=== PATIENT | female | born 1960 | race Caucasian/White ===

== ENCOUNTER → 2024-03-17 14:30 | Outpatient (BNVA) | payer MEDICARE, OTHER, SELFPAY | PROVIDERS: PCP Nurse Practitioner Family; Visit Provider Nurse Practitioner Family | DX: E03.9 Hypothyroidism, unspecified (principal); E78.5 Hyperlipidemia, unspecified; E55.9 Vitamin D deficiency, unspecified | CPT/HCPCS: 80053; 80061; 84443; 85025 ==

== ENCOUNTER 2024-04-07 07:12 | Outpatient (CLI) | payer MEDICARE, OTHER, SELFPAY ==
--- NOTE | 2024-04-07 14:00 | US_ITS ---
WS: [id number] ULTRASOUND SOFT TISSUES LEFT lower extremity. HISTORY: LUMP LEFT CONNOLLY COMPARISON: None available. TECHNIQUE: 2-D and color Doppler imaging is submitted. Please note the study was submitted for interpretation on 04/12/2024. There is a heterogeneous soft tissue mass along the anterior LEFT tibia in the area of concern. This is a well-circumscribed mass measuring 1.2 x 0.6 x 1.3 cm. Only a single images submitted with color Doppler. Limited evaluation of this mass. US/US soft tissue/extremity 20010 IMPRESSION: Limited ultrasound evaluation of the mass along the anterior LEFT tibia. This i s a hypoechoic mass which is very nonspecific. This may be a small epidermoid o r complex sebaceous cyst. There are no distinguishing features.
--- NOTE | 2024-04-07 15:00 | XR_ITS ---
WS: [id number] SCREENING DEXA SCAN BIO-NEMS CLINICAL INFORMATION: Screening COMPARISON: None. FINDINGS: The L1-L4 bone mineral density measures 1.115 g/cm2. This corresponds to a T score score of -0.5 and Z score of 0.3. Left femoral neck bone mineral density measures 0.943 g/cm2. This corresponds to a T score of -0.5 an d Z score of 0.2. Right femoral neck bone mineral density measures 0.973 g/cm2. This corresponds to a T score -0.3of an d Z score of 0.4. Mean femoral neck bone mineral density measures 0.958 g/cm2. This corresponds to a T score of -0.4 an d Z score of 0.3. XR/XR DEXA axial skeleton* [id number] IMPRESSION: Normal bone mineralization. Patient's FRAX calculated 10 year probability for major osteoporotic fracture i s 8.4% and osteoporotic hip fracture is 0.8%.
--- NOTE | 2024-04-07 15:30 | MM_ITS ---
WS: [id number] BILATERAL 3D TOMOSYNTHESIS DIGITAL SCREENING MAMMOGRAPHY WITH CAD CLINICAL INFORMATION: SCREENING HISTORY: Screening mammogram. No current complaints. COMPARISON: None available TECHNIQUE: Bilateral CC and MLO views. FINDINGS: The breasts are composed of heterogeneous fibroglandular density tissue, which can limit the detectio n of small underlying mass lesions. No suspicious mass, asymmetry, calcifications, or architectural d istortion. No evidence of malignancy. MM/[place] [id number] IMPRESSION: BI-RADS: 1-Negative FOLLOW UP: 1 Year Follow-up Recommend return to annual screening mammography.
== END 2024-04-07 13:54 | disposition home or self-care (01) ==
PROVIDERS: PCP Nurse Practitioner Family; Visit Provider Nurse Practitioner Family
DX: Z12.31 Encounter for screening mammogram for malignant neoplasm of breast (principal); R92.333 Mammographic heterogeneous density, bilateral breasts; Z13.820 Encounter for screening for osteoporosis; R22.42 Localized swelling, mass and lump, left lower limb
CPT/HCPCS: 76882; 77063; 77067; 77080

== ENCOUNTER → 2024-05-28 10:08 | Outpatient (BNVA) | payer MEDICARE, OTHER, SELFPAY | PROVIDERS: PCP Nurse Practitioner Family; Visit Provider Nurse Practitioner Family | DX: N18.32 Chronic kidney disease, stage 3b (principal) | CPT/HCPCS: 80053; 82043 ==

== ENCOUNTER → 2024-06-07 12:24 | Outpatient (BNVA) | payer MEDICARE, OTHER, SELFPAY | PROVIDERS: PCP Nurse Practitioner Family; Referring Provider Nurse Practitioner Family; Visit Provider Surgery | DX: R22.42 Localized swelling, mass and lump, left lower limb (principal) | CPT/HCPCS: 99204 ==

== ENCOUNTER → 2024-06-10 13:44 | Outpatient (BNVA) | payer MEDICARE, OTHER, SELFPAY | PROVIDERS: PCP Nurse Practitioner Family; Visit Provider Nurse Practitioner Family | DX: W57.XXXA Bitten or stung by nonvenomous insect and other nonvenomous arthropods, initial encounter (principal) | CPT/HCPCS: 86618; 86666; 86757 ==

== ENCOUNTER 2024-06-17 08:27 | Day surgery (SDC) | payer MEDICARE, OTHER, SELFPAY ==
[2024-06-17] VITALS (7 sets, daily range): BP systolic 112–164; BP diastolic 72–79; PULSE 55–63; RESP 16–18; TEMP 36.1–36.6; O2SAT 93–97; BMI 29.7
--- NOTE | 2024-06-17 09:12 | W.PM.OPSUD ---
Surgery/Procedure H&P Update DATE OF PROCEDURE: June 17, 2024 DATE H&P PERFORMED: 06/07/24 H&P UPDATE INFORMATION: I have reviewed H&P completed within last 30 days, I have examined patient prior to procedure and No changes to prior documentation PLANNED PROCEDURE: Operation Date: 06/17/24 10:05 Proposed Procedures p excision of subcutaneous [place] of leg [address], R22.22.42(Left) - Rui Davidson DO
--- NOTE | 2024-06-17 09:17 | ANES.PREANE2 ---
Pre-Anesthetic Assessment Height/Weight: Height 1.7 m Weight 86.183 kg Temp Pulse Resp BP Pulse Ox O2 Del Method 98 F 58 L 16 164/79 97 Room Air 06/17/24 09:02 06/17/24 09:02 06/17/24 09:02 06/17/24 09:02 06/17/24 09:02 06/17/24 09:02 Operation Date: 06/17/24 10:05 Proposed Procedures p excision of subcutaneous mass of leg [id number], R22.22.42(Left) - Rui Davidson DO Familial anesthetic complications: None Was Beta Seema taken within 24 hours: N/A Was Clonidine taken within 24 hours: N/A Last intake: Intake Last Liquid Date 06/17/24 Last Liquid Time 06:00 Last Solid Date 06/16/24 Last Solid Time 19:00 Social No alcohol and No tobacco Exam alert, oriented x 3, clear to auscultation bilaterally and regular rate & rhythm Airway Mallampati: Class II Dentition: full Metabolic Thyroid Disease hx potassium 5.4 Anesthetic Plan ASA status: 2 Anesthesia: General Other: Draw BMP Risk of > 500 ml blood loss (7ml/kg in children): No Medications/Allergies Home Medications Medication Instructions Recorded Confirmed Last Taken Type levothyroxine 50 mcg tablet 50 mcg PO DAILY 90 days #90 tabs 03/17/24 06/16/24 06/17/24 Rx ferrous sulfate-vitamin C 39 mg-75 1 tab PO DAILY 06/16/24 06/16/24 06/16/24 History mg tablet lutein 6 mg capsule 6 mg PO DAILY 06/16/24 06/16/24 06/16/24 History zinc 15 mg tablet 30 mg PO DAILY 06/16/24 06/16/24 06/16/24 History Allergies Allergy/AdvReac Type Severity Reaction Status Date / Time Sulfa (Sulfonamide Allergy Unknown Verified 06/17/24 08:56 Antibiotics) [facility] Anesthesia Family History Mother Diabetes Rheumatoid arthritis Social History Smoking and tobacco/nicotine status: never used tobacco/nicotine Data Anesthesia Cardiac Studies: No Data to Display
[2024-06-17] MEDS: sodium chloride 0.9% 1,000 ML 30 ML IV (09:24)
[2024-06-17 09:55] LABS: Blood Urea Nitrogen 16 mg/dL (8-23); Calcium 8.2 mg/dL (8.5-10.5); Carbon Dioxide 23 mmol/L (22-29); Chloride 106 mmol/L (98-107); Creatinine Clr Calc Pharmacy 79.0602; Glomerular Filtration Rate 123.8 mL/min (90-130); Glucose 76 mg/dL (65-115); Osmolality Calculated 290 mOsm/kg (285-295); Sodium 140 mmol/L (136-145)
[2024-06-17 09:58] LABS: Anion Gap 15.1 (5-19); Potassium 4.1 mmol/L (3.5-5.1)
[2024-06-17] MEDS: ceFAZolin 2,000 mg SDV 2000 MG IVP (10:58)
[2024-06-17] MEDS: lidocaine-epi 2% PF 1:200,000 20 mL SDV 4 ML XX (11:15)
--- NOTE | 2024-06-17 11:22 | PM.OP ---
Operative Report Date of procedure: June 17, 2024 Pre-op diagnosis: Subcutaneous mass left leg Post-op diagnosis: same Procedure done: Excision of subcutaneous mass left leg 1.5 cm Implants: None Specimens removed/disposition: Subcutaneous mass left leg Surgeon: Rui Davidson DO Anesthesia: MAC and Local Estimated blood loss (mL): 5 Complications: None apparent Brief History: This is a very pleasant 63-year-old female presented my office with an enlarging and painful subcutaneous mass of her left leg. She desired excision. The risks and benefits were explained and documented. Procedure: Patient was placed on the OR table in the supine position. The left leg was inspected prepped and draped in usual sterile fashion. A time was performed. All present were in agreement. 2% lidocaine with epinephrine was used to anesthetize the skin over the subcutaneous mass on the anterior left leg. A 1.5 cm transverse elliptical incision was made with 15 blade scalpel. Cautery was used to dissect down around a cystic structure which was removed intact. Skin was closed with 4-0 Vicryl in a simple interrupted fashion. Sterile bandages were applied. Patient tolerated procedure well.
--- NOTE | 2024-06-17 12:20 | ANE.PACU2 ---
Inpatient post-anesthesia follow up: Airway intact: Yes Vital signs: Temperature 97.5 F Pulse Rate 56 Respiratory Rate 18 Blood Pressure 142/77 Pulse Oximetry 97 Oxygen Delivery Me thod Room Air Oxygen Flow Rate Fraction of Inspir ed Oxygen Hydration adequate: Yes Nausea and vomiting: No Pain level: 1 Mental status: Baseline
== END 2024-06-17 12:20 | disposition home or self-care (01) ==
PROVIDERS: Anesthesiology; PCP Nurse Practitioner Family; Visit Provider Surgery
PROC: (CPT 11402; principal; 2024-06-17 09:10)
DX: R22.42 Localized swelling, mass and lump, left lower limb (principal)
CPT/HCPCS: 11402; 36415; 80048; 88304; 88342; J0690; J2250; J2704; J3010; J7030

== ENCOUNTER → 2024-06-28 13:04 | Outpatient (BNVA) | payer MEDICARE, OTHER, SELFPAY | PROVIDERS: PCP Nurse Practitioner Family; Visit Provider Surgery | DX: Z12.11 Encounter for screening for malignant neoplasm of colon (principal); R12 Heartburn; K21.9 Gastro-esophageal reflux disease without esophagitis; D23.9 Other benign neoplasm of skin, unspecified | CPT/HCPCS: 99214 ==

== ENCOUNTER → 2024-07-19 09:46 | Outpatient (BNVA) | payer MEDICARE, OTHER, SELFPAY | PROVIDERS: PCP Nurse Practitioner Family; Visit Provider Surgery | DX: Z98.890 Other specified postprocedural states (principal) | CPT/HCPCS: 99214 ==

== ENCOUNTER 2024-07-26 10:46 | Day surgery (SDC) | payer MEDICARE, OTHER, SELFPAY ==
[2024-07-26 10:59] VITALS: BP 148/92; PULSE 75; RESP 18; TEMP 36.5; O2SAT 97; BMI 29.7
[2024-07-26] MEDS: sodium chloride 0.9% 1,000 ML 30 ML IV (11:09)
--- NOTE | 2024-07-26 12:16 | ANES.PREANE2 ---
Pre-Anesthetic Assessment Height/Weight: Height 5 ft 7 in Weight 190 lb Temp Pulse Resp BP Pulse Ox O2 Del Method 97.7 F 75 18 148/92 97 Room Air 07/26/24 10:59 07/26/24 10:59 07/26/24 10:59 07/26/24 10:59 07/26/24 10:59 07/26/24 10:59 Preop Diagnosis: EGD/colonoscopy Operation Date: 07/26/24 12:00 Proposed Procedures p EGD 36324, 96250,G0121, Z12.11(Not Applicable) - Rui Davidson DO s Colonoscopy(Not Applicable) - Rui Davidson DO Was Beta Seema taken within 24 hours: N/A Was Clonidine taken within 24 hours: N/A Last intake: Intake Last Liquid Date 07/25/24 Last Liquid Time 20:00 Last Solid Date 07/24/24 Last Solid Time 19:00 Social No alcohol and No tobacco Exam alert, oriented x 3, clear to auscultation bilaterally and regular rate & rhythm Airway Submandibular: within normal limits Cervical ROM: within normal limits Mallampati: Class II Dentition: full Anesthetic Plan ASA status: 2 Anesthesia: MAC Other: No prior issues with anesthesia Completed bowel prep History of hypothyroidism, on Synthroid GERD on Protonix Denies hypertension, a.m. BP 148/92 METs greater than 4 Plan for MAC anesthetic Medications/Allergies Home Medications Medication Instructions Recorded Confirmed Last Taken Type levothyroxine 50 mcg tablet 50 mcg PO DAILY 90 days #90 tabs 03/17/24 07/22/24 07/26/24 08:00 Rx ferrous sulfate-vitamin C 39 mg-75 1 tab PO DAILY 06/16/24 07/22/24 07/25/24 History mg tablet lutein 6 mg capsule 6 mg PO DAILY 06/16/24 07/22/24 07/25/24 History zinc 15 mg tablet 30 mg PO DAILY 06/16/24 07/22/24 07/25/24 History hydrocodone 7.5 mg-acetaminophen 1 tab PO Q6H PRN pain #20 tabs 06/17/24 07/22/24 Unknown Rx 325 mg tablet pantoprazole 40 mg tablet,delayed 40 mg PO BID 6 weeks #84 tabs 06/28/24 07/22/24 07/25/24 Rx release (Protonix) Allergies Allergy/AdvReac Type Severity Reaction Status Date / Time Sulfa (Sulfonamide Allergy Unknown Verified 07/19/24 09:48 Antibiotics) Current Medications Generic Name Dose Route Start Last Admin Trade Name Freq PRN Reason Stop Dose Admin Sodium Chloride 1,000 mls @ 30 mls/hr 07/26/24 11:00 07/26/24 11:09 Sodium Chloride 0.9% IV 07/27/24 10:59 30 mls/hr .Q24H JUANJO Administration PFSH Anesthesia Surgical History Hx of hysterectomy 2007 Hx of colonoscopy with polypectomy age 48 Hx of excision of mass 06/17/24 Dr Davidson Subcutaneous mass left leg Family History Mother Diabetes Rheumatoid arthritis Social History Smoking and tobacco/nicotine status: never used tobacco/nicotine Data Anesthesia Cardiac Studies: No Data to Display
--- NOTE | 2024-07-26 12:43 | W.PM.OPSUD ---
Surgery/Procedure H&P Update DATE OF PROCEDURE: July 26, 2024 DATE H&P PERFORMED: 06/28/24 H&P UPDATE INFORMATION: I have reviewed H&P completed within last 30 days, I have examined patient prior to procedure and No changes to prior documentation PREOP DIAGNOSIS: EGD/colonoscopy PLANNED PROCEDURE: Operation Date: 07/26/24 12:00 Proposed Procedures p EGD 11949, 89161,G0121, Z12.11(Not Applicable) - DO abby Tilley Colonoscopy(Not Applicable) - Rui Davidson DO
[2024-07-26 13:06] VITALS: BP 129/75; PULSE 71; RESP 20; TEMP 36.1; O2SAT 96
[2024-07-26 13:14] VITALS: BP 129/95; PULSE 70; RESP 20; O2SAT 94
--- NOTE | 2024-07-26 13:44 | ANE.PACU2 ---
Inpatient post-anesthesia follow up: Airway intact: Yes Vital signs: Temperature 97.0 F Pulse Rate 70 Respiratory Rate 20 Blood Pressure 129/95 Pulse Oximetry 94 Oxygen Delivery Me thod Room Air Oxygen Flow Rate Fraction of Inspir ed Oxygen Hydration adequate: Yes Nausea and vomiting: No Pain level: 1 Mental status: Baseline
== END 2024-07-26 13:44 | disposition home or self-care (01) ==
PROVIDERS: PCP Nurse Practitioner Family; Visit Provider Surgery
PROC: 0DJ08ZZ Inspection of Upper Intestinal Tract, Via Natural or Artificial Opening Endoscopic (ICD-10-PCS; CPT 43235; principal; 2024-07-26 12:00)
PROC: 0DJD8ZZ Inspection of Lower Intestinal Tract, Via Natural or Artificial Opening Endoscopic (ICD-10-PCS; CPT 45378; 2024-07-26 12:00)
DX: Z12.11 Encounter for screening for malignant neoplasm of colon (principal); R12 Heartburn; K63.89 Other specified diseases of intestine; K21.9 Gastro-esophageal reflux disease without esophagitis; E03.9 Hypothyroidism, unspecified
CPT/HCPCS: 43239; 88305; G0121; J2704; J7030

== ENCOUNTER → 2024-08-09 14:23 | Outpatient (BNVA) | payer MEDICARE, OTHER, SELFPAY | PROVIDERS: PCP Nurse Practitioner Family; Visit Provider Surgery | DX: Z09 Encounter for follow-up examination after completed treatment for conditions other than malignant neoplasm (principal); K21.9 Gastro-esophageal reflux disease without esophagitis | CPT/HCPCS: 99214 ==